=== PATIENT | male | born 1940 | race Caucasian/White ===

== ENCOUNTER 2022-09-25 09:57 | Emergency (ER) | payer BC, MEDICARE, OTHER ==
[~2022-09-25] VITALS: Ht 162.6 cm; Wt 56.7 kg
--- NOTE | 2022-09-25 10:05 | NUR ---
RECEIVED PT 82 yrs male came from home by melissa c/o neck and pack pain 10/10 for 2 days dineses any hx of truma or fall
--- NOTE | 2022-09-25 10:25 | NUR ---
SEEN BY DR. GOLD
[2022-09-25] MEDS ORDERED: KETOROLAC TROMETHAMINE INJ 30 MG/ML VIAL IM ONE (10:30)
[2022-09-25] MEDS ORDERED: CYCLOBENZAPRINE 10 MG TABLET PO ONE (10:30)
[2022-09-25] MEDS ORDERED: KETOROLAC TROMETHAMINE INJ 30 MG/ML VIAL ONE (10:35)
[2022-09-25] MEDS ORDERED: CYCLOBENZAPRINE 10 MG TABLET ONE (10:35)
[2022-09-25] MEDS ORDERED: methylPREDNISolone SOD SUCC 125 MG/2ML VIAL ONE (10:40)
[2022-09-25] MEDS ORDERED: ACETAMINOPHEN ES 500 MG TABLET ONE (10:40)
[2022-09-25] MEDS ORDERED: methylPREDNISolone SOD SUCC 125 MG/2ML VIAL IV ONE (11:00)
[2022-09-25] MEDS ORDERED: ACETAMINOPHEN ES 500 MG TABLET PO ONE (11:00)
--- NOTE | 2022-09-25 11:15 | NUR ---
RESTING AND COMFORTABLE AFTER MEDICTION WAS GIVEN
--- NOTE | 2022-09-25 12:33 | NUR ---
ASLEEPY C/O VALENTINE SUSHANT FARAH AWARE
[2022-09-25 12:49] LABS: BASOPHILS % (AUTO) 0.2 % (0.0-2.0); HEMATOCRIT 38 % (39-51); HEMOGLOBIN 12.6 g/dL (13.5-17.5); LYMPHOCYTES # (AUTO) 0.9 K/uL (0.8-4.8); LYMPHOCYTES % (AUTO) 10.3 % (20.0-44.0); MEAN CORPUSCULAR HGB CONC 33 g/dl (31.0-36.0); MEAN CORPUSCULAR VOLUME 94 fL (80-96); MONOCYTES # (AUTO) 0.3 K/uL (0.1-1.30); MONOCYTES % (AUTO) 3.8 % (2.0-12.0); NEUTROPHILS # (AUTO) 7.5 K/uL (1.8-8.9); NEUTROPHILS % (AUTO) 85.7 % (43.0-81.0); PLATELET COUNT (AUTO) 114 K/uL (150-450); RED BLOOD CELL COUNT(AUTO) 4.02 MIL/uL (4.5-6.0); WHITE BLOOD COUNT (AUTO) 8.8 K/uL (4.3-11.0)
[2022-09-25 13:00] LABS: CALCIUM, SERUM 9.3 mg/dL (8.5-10.1); CARBON DIOXIDE 29 mmol/L (21-32); CHLORIDE 102 mmol/L (98-107); CREATININE 1.1 mg/dL (0.6-1.3); GLUCOSE 114 mg/dL (74-106); POTASSIUM 3.6 mmol/L (3.5-5.1); SODIUM SERUM 139 mmol/L (136-145); UREA NITROGEN, BLOOD 19 mg/dL (7-18)
--- NOTE | 2022-09-25 13:00 | NUR ---
BLOOD DROW BY LAB TACH
[2022-09-25 13:14] LABS: THYROID STIMULATING HORMONE 2.356 uIU/mL (0.358-3.74)
--- NOTE | 2022-09-25 13:15 | NUR ---
TO CT PEDRO LUIS ON NECK AND BACK
[2022-09-25] MEDS ORDERED: ACET-2605 PO (13:45)
[2022-09-25] MEDS ORDERED: CYCL5TAB PO (13:45)
[2022-09-25] MEDS ORDERED: PRED50TA PO (13:45)
--- NOTE | 2022-09-25 14:15 | NUR ---
IV removed. Catheter intact and site benign. Pressure and 4x4 applied to site. No bleeding noted.
--- NOTE | 2022-09-25 14:23 | NUR ---
Patient discharged to home in stable condition. Written and verbal after care instructions given. Patient verbalizes understanding of instruction.
[2022-09-25 14:34] VITALS: BP 157/79
== END 2022-09-25 14:36 | disposition home or self-care (01) ==
LOC: ER 10:03
DX: M54.2 Cervicalgia (principal); M54.9 Dorsalgia, unspecified; Z60.2 Problems related to living alone
CPT/HCPCS: 99285; 96374; 70490; 85025; 80048; 36415; 84439; 84443; J2930; J1885